=== PATIENT | male | born 1970 | race Caucasian/White ===

== ENCOUNTER 2018-09-15 15:38 | Emergency (ER) | payer SELFPAY ==
[~2018-09-15] VITALS: Ht 162.6 cm; Wt 87.1 kg
[2018-09-15 16:10] VITALS: BP 195/99
--- NOTE | 2018-09-15 16:58 | NUR ---
PT AMBULATED TO ER BED 09
[2018-09-15] MEDS ORDERED: NITROGLYCERIN 0.4 MG TAB SL ONE (17:00)
[2018-09-15] MEDS ORDERED: ASPIRIN 325 MG TAB PO ONE (17:00)
--- NOTE | 2018-09-15 17:00 | NUR ---
BIB SPOUSE. AAO X 4. C/O INTERMITTENT MID STERNAL OR MID UPPER BACK PRESSURE TYPE PAIN X 1 YR; MOST RECENTLY 6 MONTHS OF MORE FREQUENT---FOLLOWED BY SOB. 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 HOB UP. BED SIDE RAILS UP X1. ON LOW BED POSITION, LOCKED. ER MADE AWARE OF PT STATUS.
--- NOTE | 2018-09-15 17:10 | NUR ---
PT UNABLE TO GIVE URINE AT THIS TIME.
[2018-09-15 17:28] LABS: BASOPHILS % (AUTO) 0.2 % (0.0-2.0); EOSINOPHILS % (AUTO) 0.1 % (0.0-4.0); LYMPHOCYTES # (AUTO) 1.1 K/uL (2.0-11.5); LYMPHOCYTES % (AUTO) 10.5 % (20.5-51.1); MEAN CORPUSCULAR HEMOGLOBIN 28 pg (27-31); MEAN CORPUSCULAR HGB CONC 35 g/dL (33-37); MEAN CORPUSCULAR VOLUME 81.8 fL (80-94); MONOCYTES # (AUTO) 0.4 K/uL (0.8-1.0); MONOCYTES % (AUTO) 3.7 % (1.7-9.3); NEUTROPHILS # (AUTO) 8.7 K/uL (1.8-7.7); NEUTROPHILS % (AUTO) 85.5 % (42.2-75.2); PLATELET COUNT (AUTO) 230 K/uL (140-450); RED BLOOD CELL COUNT(AUTO) 5.62 MIL/uL (4.20-6.10); RED CELL DISTRIBUTION WIDTH 13.6 % (11.6-13.7); WHITE BLOOD COUNT (AUTO) 10.2 K/uL (4.8-10.8)
[2018-09-15 17:40] LABS: PROTHROMBIN TIME 9.8 secs (10.8-13.4)
[2018-09-15 17:42] LABS: ANION GAP 12.2 (8-16); CARBON DIOXIDE 29.7 mmol/L (21-32); POTASSIUM 3.9 mmol/L (3.5-5.1)
[2018-09-15 17:49] LABS: ALBUMIN 4.1 g/dL (3.4-5.0); TOTAL BILIRUBIN 0.4 mg/dL (0.0-1.0)
--- NOTE | 2018-09-15 17:54 | NUR ---
ASSISTED PRIMARY RN WITH CARE
--- NOTE | 2018-09-15 17:55 | NUR ---
STOPPED NITRO AFTER ONE DOSE DUE TO CHANGE IN SYSTOLIC PRESSURE FROM 170 TO 130, DR. ZARATE MADE AWARE.
[2018-09-15] MEDS ORDERED: DICYCLOMINE HCL LIQUID 20 MG, ALUMINUM HYD/MAG/SIMETHICONE 30 ML, LIDOCAINE VISCOUS 2% ... PO ONE ×3 (18:15)
[2018-09-15] MEDS ORDERED: MORPHINE SULFATE 4 MG/ML SYR IVP ONE (18:30)
--- NOTE | 2018-09-15 19:10 | NUR ---
Patient to be transferred to [facility]. Is being transferred due to Receiving facility has accepting physician and available space. ER physician has signed transfer form. Patient or responsible green party has agreed to transfer and signed form. Patient belongings inventoried and will be sent with patient. Copy of nursing notes, lab reports, EKG, Physicians Orders and X-rays to be sent with patient. Report called to Charmainecharge nurse at receiving facility, but refused to receive report. Report given to EMS. [facility] ambulance service has been called for transfer.
--- NOTE | 2018-09-15 19:19 | NUR ---
SPOKE TO COLEMAN FOR REPORT,ALL SHE WANTED TO KNOW IS THE NAME AND AGE OF PATIENT WHICH I PROVIDED. SHE SAID SHE WILL GET REPORT EMS WHEN PATIENT GETS THERE. PARAMEDICS MADE AWARE. PRIMARY NURSE TRACY GIVING REPORT TO PARAMEDICS
[2018-09-15 19:20] VITALS: BP 153/90
--- NOTE | 2018-09-15 19:20 | NUR ---
GAVE REPORT TO EMS ABOUT THE PT STATUS, CURRENT VITAL SIGNS AND MEDICATIONS GIVEN. PT IS AAOX4. NO SIGNS AND SYMPTOMS OF DISTRESS NOTED. NO SOB NOTED. PT STATES PAIN OF 2/10.
== END 2018-09-15 19:20 | disposition short-term general hospital (02) ==
LOC: MED 15:38
DX: R07.2 Precordial pain (principal); I24.9 Acute ischemic heart disease, unspecified
CPT/HCPCS: 36415; 71045; 80053; 84484; 85025; 85610; 93005; 96374; 96375; 99291; J1644; J2270; 80305

== ENCOUNTER 2024-01-19 23:15 | Emergency (ER) | payer MEDICAID, OTHER ==
[~2024-01-19] VITALS: Ht 210.8 cm; Wt 77.1 kg
[2024-01-19 23:19] VITALS: BP 150/75; PULSE 54; RESP 18; TEMP 98.9; O2SAT 98
[2024-01-19 23:39] VITALS: O2SAT 99
[2024-01-20] MEDS ORDERED: DICYCLOMINE HCL LIQUID 10 MG/5 ML UDC ONE (00:34)
[2024-01-20] MEDS ORDERED: ALUMINUM HYD/MAG/SIMETHICONE 30 ML UDC ONE (00:34)
[2024-01-20] MEDS: DICYCLOMINE HCL LIQUID 20 MG, ALUMINUM HYD/MAG/SIMETHICONE 30 ML, LIDOCAINE VISCOUS 2% ... PO ONE (00:38)
[2024-01-20] MEDS: HYDROcodone/APAP 5/325 MG 1 TAB TAB PO ONE (00:39)
[2024-01-20] MEDS: ONDANSETRON 4 MG ODT PO ONE (00:52)
[2024-01-20 00:56] LABS: BASOPHILS # (AUTO) 0.1 K/uL (0.00-0.22); BASOPHILS % (AUTO) 0.5 % (0.0-2.0); EOSINOPHILS # (AUTO) 0.4 K/uL (0-0.4); EOSINOPHILS % (AUTO) 3.7 % (0.0-4.0); HEMOGLOBIN 14.6 g/dL (12.0-18.0); LYMPHOCYTES # (AUTO) 1.2 K/uL (2.0-11.5); LYMPHOCYTES % (AUTO) 12.5 % (20.5-51.1); MEAN CORPUSCULAR HEMOGLOBIN 29 pg (27-31); MEAN CORPUSCULAR HGB CONC 35 g/dL (33-37); MEAN CORPUSCULAR VOLUME 83.4 fL (80-94); MONOCYTES # (AUTO) 0.3 K/uL (0.8-1.0); NEUTROPHILS % (AUTO) 80.3 % (42.2-75.2); PLATELET COUNT (AUTO) 189 K/uL (140-450); RED BLOOD CELL COUNT(AUTO) 5.04 MIL/uL (4.20-6.10); RED CELL DISTRIBUTION WIDTH 13.2 % (11.6-13.7)
[2024-01-20 01:17] LABS: ALANINE AMINOTRANSFERASE 41 U/L (12-78); ALBUMIN 3.8 g/dL (3.4-5.0); ALKALINE PHOSPHATASE 90 U/L (50-136); ASPARTATE AMINOTRANSFERASE 23 U/L (15-37); CALCIUM 9.2 mg/dL (8.5-10.1); CARBON DIOXIDE 28.6 mmol/L (21-32); CREATININE 1.1 mg/dL (0.6-1.3); GFR ARICAN-AMERICAN 89 mL/min (>90); GFR NON ARICAN-AMERICAN 74 mL/min (>90); GLUCOSE 181 mg/dL (74-106); LIPASE 631 U/L (16-77); TOTAL BILIRUBIN 0.3 mg/dL (0.0-1.0); TOTAL PROTEIN, SERUM 7.7 g/dL (6.4-8.2); UREA NITROGEN, BLOOD 17 mg/dL (7-18)
[2024-01-20 01:26] LABS: ANION GAP 9.6 (8-16); CHLORIDE 102 mmol/L (98-107); POTASSIUM 4.2 mmol/L (3.5-5.1); SODIUM SERUM 136 mmol/L (136-145)
[2024-01-20] MEDS ORDERED: ACET-9525 PO (01:41)
[2024-01-20] MEDS ORDERED: FAMO-90 PO (01:41)
[2024-01-20] MEDS ORDERED: MAG355OR2 PO (01:41)
[2024-01-20 01:51] VITALS: BP 127/79; PULSE 72; RESP 14; TEMP 98.3; O2SAT 98
== END 2024-01-20 01:51 | disposition home or self-care (01) ==
LOC: MED 23:15
DX: K85.90 Acute pancreatitis without necrosis or infection, unspecified (principal); E78.5 Hyperlipidemia, unspecified; Z95.811 Presence of heart assist device; Z79.1 Long term (current) use of non-steroidal anti-inflammatories (NSAID); Z79.899 Other long term (current) drug therapy
CPT/HCPCS: 36415; 76705; 80053; 83690; 84484; 85025; 93005; 99284; Q0092; Q0162